=== PATIENT | male | born 1975 | race Caucasian/White ===

== ENCOUNTER 2016-06-10 10:41 | Emergency (ER) | payer OTHER ==
[~2016-06-10] VITALS: Ht 188 cm; Wt 103.9 kg
[~2016-06-10 10:41] MED LIST: CEFDINIR300 MG PO; CORTISPORIN 1%-10 ML; CRESTOR20 M2 PO; IBU800 MG PO; IBUPROFEN800 M1 PO; LEVOTHYROXINE175 MCG PO; NAPROSYN 500 M500 MG PO; PERCOCET 325 MG1 TA2 PO; SUMATRIPTAN SU100 MG PO; TRAMADOL HCL50 M1 PO
[2016-06-10 10:49] VITALS: BP 116/62
--- NOTE | 2016-06-10 11:43 | ED GI/GU/ABDOMINAL COMPLAINT ---
History of Present Illness General Chief Complaint: Male Genitourinary Problems Stated Complaint: L GROIN PAIN Source: patient Exam Limitations: no limitations Vital Signs & Intake/Output Vital Signs & Intake/Output Vital Signs Date Time Temp Pulse Resp B/P Pulse O2 O2 Flow FiO2 Ox Delivery Rate 06/10 1156 96 Room Air 06/10 1049 97.7 71 20 116/62 96 Room Air Allergies Coded Allergies: raspberry (Severe, HIVES 06/03/15) azithromycin (HIVES 06/03/15) Reconcile Medications Levothyroxine Sodium 175 MCG TABLET 1 TAB PO DAILY THYROID HEALTH (Reported) Rosuvastatin Calcium (Crestor) 10 MG TABLET 1 TAB PO DAILY HIGH CHOLESTROL ( Reported) Tramadol HCl 50 MG TABLET 1-2 TAB PO Q6P PRN pain Triage Note: PT C/O LEFT GROIN PAIN X 3 DAYS. PT DENIES ANY RADIATION OF PAIN. PT DENIES ANY INJURY, DENIES URINARY S&S Triage Nurses Notes Reviewed? yes Onset: Gradual Duration: intermittent Timing: recent history Quality/Severity: moderate Severity Numbers: 5 Radiation: no radiation Activities at Onset: none HPI: Patient is a 40-year-old male with an unremarkable past medical history presents emergency room patent for the past 3 days patient has noticed a gradual onset of left lower quadrant and pelvic abdominal wall pain. Patient denies any mechanism injury however does state that with laughing walking coughing and lumbar spine movements what makes his symptoms worse. Last bowel movement was today no blood no melena noted. Denies any nausea or fevers chills vomiting testicular pain testicular swelling dysuria hematuria (CHRISTY RIZO) Past History Travel History Traveled to [place] past 21 day No Medical History Any Pertinent Medical History? see below for history Neurological: NONE EENT: NONE Cardiovascular: hyperlipidemia Respiratory: NONE Gastrointestinal: NONE Hepatic: NONE Renal: NONE Musculoskeletal: chronic back pain Psychiatric: NONE Endocrine: hypothyroidism Tetanus Vaccine: 09/29/15 Surgical History Surgical History: non-contributory, N Psychosocial History What is your primary language [place]orese Tobacco Use: Never used ETOH Use: occasional use Illicit Drug Use: denies illicit drug use Family History Hx Contributory? No (CHRISTY RIZO) Review of Systems Review of Systems Constitutional: Reports: no symptoms. EENTM: Reports: no symptoms. Respiratory: Reports: no symptoms. Cardiovascular: Reports: no symptoms. GI: Reports: see HPI, abdominal pain. Genitourinary: Reports: no symptoms. Musculoskeletal: Reports: no symptoms. Skin: Reports: no symptoms. Neurological/Psychological: Reports: no symptoms. Hematologic/Endocrine: Reports: no symptoms. Immunologic/Allergic: Reports: no symptoms. All Other Systems: Reviewed and Negative (CHRISTY RIZO) Physical Exam Physical Exam General Appearance: no apparent distress, alert, comfortable Gastrointestinal: normal bowel sounds, soft Male Genitals: normal genitalia, INTACT CREMASTER REFLEX nONTENDER TESTICLE NO SCROTAL SWELLING nO INGUINAL HERNIA UPON PALPATION Comments: Well-developed well-nourished person in no acute distress HEENT: Normal EENT exam Neck: Supple, no lymphadenopathy, normal range of motion without pain or tenderness Back: Nontender, no CVA tenderness. Cardiovascular: Regular rate and rhythms no murmurs rubs or gallops, normal JVP Respiratory: Chest nontender. No respiratory distress.breath sounds clear to auscultation bilaterally Abdomen: Normal inspection, left lower quadrant and pelvic point tenderness no observable hernia bowel sounds intact in all 4 quadrants Extremity: No edema, no calf tenderness to palpation, normal and equal pulses. Neuro: Alert oriented x3, motor sensory normal, Skin: No appreciable rash on exposed skin, skin is warm and dry. Psych: Mood and affect is normal, memory and judgment is normal. Core Measures ACS in differential dx? No Severe Sepsis Present: No Septic Shock Present: No (CHRISTY RIZO) Progress Differential Diagnosis: AAA, AMI, appendicitis, biliary colic, bowel obstruction , colon cancer, cholecystitis, diverticulitis, epididymitis, esophageal varices, gastritis, hepatitis, hernia, hemorrhoids, ischemic bowel, inflamm bowel dis, [place]-T[place] tear, orchitis, pancreatitis, prostatitis, peptic ulcer, PUD/GERD, perforated viscous, pyelonephritis, SBO, testicular torsion, ureterolithiasis, urinary retention, urethritis, UTI/pyelo Plan of Care: Patient has reproducible pain upon supine trunk flexion abdominal movements however no observable hernias noted at this time. Patient also has reproducible pain upon muscular actions of the abdominal wall such as coughing and laughing and lumbar spine movements. Patient at this time has no concerns of small bowel obstruction or testicular torsion. Patient has normal steady gait and is in no apparent distress. Patient was given a CT scan prescription if symptoms still continue in 2 days for further evaluation and treatment. Patient has no concerns of right lower quadrant pain no peritoneal signs no rebound tenderness no right upper quadrant pain no epigastric pain. Due to history of present illness and exam findings I suspect patient to have abdominal wall strain Initial ED EKG: none (CHRISTY RIZO) Departure Departure Disposition: HOME OR SELF CARE Condition: Stable Clinical Impression Primary Impression: Abdominal wall pain in left lower quadrant Referrals: CONNIE MARTINEZ MD (PCP/Family) Additional Instructions: As discussed begin to avoid strenuous physical activity as this may worsen her symptoms. Begin [id number] ibuprofen and/or Tylenol for pain and inflammation begin icing the area directly 20 minutes every 2 hours for pain. If symptoms still continue in 2 days follow-up WITH YOUR Primary care doctor and obtain a CT scan with the prescription PROVIDED to you in the emergency room , please call the central scheduling phone number at [phone] to make an appointment for the CT scan this is at [facility] Department of radiology. This will be sent to your primary care doctor. If symptoms worsen return to emergency room Departure Forms: Customer Survey General Discharge Information (CHRISTY RIZO) PA/DAIRY TECHNOLOGIST Co-Sign Statement Statement: ED Attending supervision documentation- [] I saw and evaluated the patient. I have also reviewed all the pertinent lab results and diagnostic results. I agree with the findings and the plan of care as documented in the PA's/DAIRY TECHNOLOGIST's documentation. x I have reviewed the ED Record and agree with the PA's/DAIRY TECHNOLOGIST's documentation. [] Additions or exceptions (if any) to the PAs/DAIRY TECHNOLOGIST's note and plan are summarized below: [] (TEO GOULD,BHUMIKA)
[2016-08-12] MEDS ORDERED: SUMATRIPTAN SU100 M1 PO (22:08)
[2016-08-12] MEDS ORDERED: CYCLOBENZAPRINE10 M1 PO (22:32)
[2016-08-12] MEDS ORDERED: MOBIC15 M1 PO (22:32)
== END 2016-06-10 12:04 ==
LOC: ERH 10:41
DX: R10.32 Left lower quadrant pain (principal)

== ENCOUNTER 2016-06-13 15:03 | Emergency (ER) | payer OTHER ==
[~2016-06-13] VITALS: Ht 188 cm; Wt 103.9 kg
[2016-06-13 15:49] LABS: ABSOLUTE BASOPHIL COUNT 0 /CUMM (0.0-0.2); ABSOLUTE EOSINOPHIL COUNT 0.1 /CUMM (0.0-0.7); ABSOLUTE LYMPH COUNT 2.2 /CUMM (1.2-3.4); ABSOLUTE MONOCYTE COUNT 0.5 /CUMM (0.10-0.60); BASOPHIL % 0.2 % (0.0-2.0); EOSINOPHIL % 1.8 % (0-5); GRANULOCYTE % 58.2 % (42.2-75.2); HEMATOCRIT 45.8 % (42-52); MEAN CORPUSCULAR HGB 30.3 PG (27.0-31.0); MEAN CORPUSCULAR HGB CONC 33.5 G/DL (33.0-37.0); MEAN CORPUSCULAR VOLUME 90.4 FL (80.0-94.0); MEAN PLATELET VOLUME 8.5 FL (7.4-10.4); PLATELET COUNT 209 /CUMM (130-400); RBC DISTRIBUTION WIDTH 12.8 % (11.5-14.5); RED BLOOD CELL CT 5.07 /CUMM (4.70-6.10); WHITE BLOOD CELL COUNT 6.9 /CUMM (4.8-10.8)
--- NOTE | 2016-06-13 16:12 | ED GI/GU/ABDOMINAL COMPLAINT ---
History of Present Illness General Chief Complaint: Abdominal Pain/Flank Pain Stated Complaint: L FLANK PAIN Source: patient Exam Limitations: no limitations Vital Signs & Intake/Output Vital Signs & Intake/Output Vital Signs Date Time Temp Pulse Resp B/P Pulse O2 O2 Flow FiO2 Ox Delivery Rate 06/13 1718 97.7 60 18 124/81 98 Room Air 06/13 1520 98.4 62 16 123/78 98 Room Air Allergies Coded Allergies: raspberry (Severe, HIVES 06/03/15) azithromycin (HIVES 06/03/15) Reconcile Medications Levothyroxine Sodium 175 MCG TABLET 1 TAB PO DAILY THYROID HEALTH (Reported) Oxycodone HCl 5 MG CAPSULE 1 CAP PO 4XDP abdominal pain Rosuvastatin Calcium (Crestor) (Unknown Strength) TABLET (Unknown Dose) PO DAILY HIGH CHOLESTROL (Reported) Tramadol HCl 50 MG TABLET 1-2 TAB PO Q6P PRN pain Triage Note: PT WAS SEEN HERE WED DUE TO LLQ PAIN, PAIN HAS BEEN CONSTANT. DENIES N/V/D. STATES THAT HE WAS TOLD TO HAVE OUT PT CT SCAN BUT WHEN HE CALLED THEY TOLD HIM THEY COULDN'T DO IT. Triage Nurses Notes Reviewed? yes HPI: 40 yo M PMH LBP presenting with abdominal pain. LLQ pain for the past 5-6 days, constant, worse with movement or palpation, nonradiating. Denies associated fevers, chills, chest pain, shortness of breath, nausea, vomiting, diarrhea, constipation, bloody stools or melena, penile or scrotal symptoms, urinary symptoms. Evaluated for the same in this emergency department 2 days ago, discharged with pain control and outpatient prescription for CT abdomen and pelvis, today was having ongoing pain so attempted to get CT abdomen and pelvis, told he was unable to get study, sent to ED for evaluation. Denies alcohol or illicit drug use. No prior abdominal surgeries. (MIHAI GOULD,CARLEEN) Past History Travel History Traveled to [place] past 21 day No Medical History Any Pertinent Medical History? none Neurological: NONE EENT: NONE Cardiovascular: hyperlipidemia Respiratory: NONE Gastrointestinal: NONE Hepatic: NONE Renal: NONE Musculoskeletal: chronic back pain Psychiatric: NONE Endocrine: hypothyroidism Blood Disorders: NONE Cancer(s): NONE BENCH WORKER HELPER/Reproductive: NONE Tetanus Vaccine: 09/29/15 Surgical History Surgical History: non-contributory, N Psychosocial History What is your primary language [place] Tobacco Use: Never used ETOH Use: denies use Illicit Drug Use: denies illicit drug use Family History Hx Contributory? No (CARLEEN HOLM MD) Review of Systems Review of Systems Constitutional: Reports: no symptoms. EENTM: Reports: no symptoms. Respiratory: Reports: no symptoms. Cardiovascular: Reports: no symptoms. GI: Reports: abdominal pain. Denies: constipation, diarrhea, distention, melena, nausea, bloody stool, changes in stool, vomiting. Genitourinary: Reports: no symptoms. Musculoskeletal: Reports: no symptoms. Skin: Reports: no symptoms. Neurological/Psychological: Reports: no symptoms. Hematologic/Endocrine: Reports: no symptoms. Immunologic/Allergic: Reports: no symptoms. All Other Systems: Reviewed and Negative (CARLEEN HOLM MD) Physical Exam Physical Exam General Appearance: well developed/nourished, no apparent distress, alert, awake Head: atraumatic, normal appearance Eyes: Bilateral: normal appearance. Neck: normal inspection, supple, full range of motion Respiratory: normal breath sounds, no respiratory distress, lungs clear Cardiovascular: regular rate/rhythm, normal peripheral pulses Gastrointestinal: soft, LLQ tenderness to palpation Comments: Abdomen: Moderate left lower quadrant tenderness to palpation without rebound or guarding : No testicular tenderness to palpation bilaterally, no appreciable hernias Core Measures ACS in differential dx? No Severe Sepsis Present: No Septic Shock Present: No (CARLEEN HOLM MD) Progress Differential Diagnosis: appendicitis, cholecystitis, diverticulitis, epididymitis, hepatitis, ischemic bowel, pancreatitis, PUD/GERD, perforated viscous, SBO, testicular torsion, UTI/pyelo Plan of Care: Orders Procedure Date/time Status Add-on Test (ER Only) 06/13 1611 Active LIPASE 06/13 1525 Complete AMYLASE 06/13 1525 Complete LACTIC ACID 06/13 1524 Complete COMPREHENSIVE METABOLIC PANEL 06/13 1524 Complete CBC WITHOUT DIFFERENTIAL 06/13 1524 Complete Laboratory Tests 06/13/16 1824: Lactic Acid Cancelled 06/13/16 1611: Urine Color Cancelled, Urine Clarity Cancelled, Urine pH Cancelled, Ur Specific [place] Cancelled, Urine Protein Cancelled, Urine Ketones Cancelled, Urine Nitrite Cancelled, Urine Bilirubin Cancelled, Urine Urobilinogen Cancelled, Ur Leukocyte Esterase Cancelled, Ur Microscopic Cancelled, Urine Hemoglobin Cancelled, Urine Glucose Cancelled 06/13/16 1525: Anion Gap 11, Estimated GFR > 60, BUN/Creatinine Ratio 20.0, Glucose 121 H, Lactic Acid 1.1, Calcium 9.7, Total Bilirubin 0.4, AST 26, ALT 49, Alkaline Phosphatase 66, Total Protein 7.2, Albumin 4.4, Globulin 2.8, Albumin/Globulin Ratio 1.6, Amylase 48, Lipase 60, CBC w Diff NO MAN DIFF REQ, RBC 5.07, MCV 90.4 , MCH 30.3, RDW 12.8, MPV 8.5, Gran % 58.2, Lymphocytes % 32.6, Monocytes % 7.2, Eosinophils % 1.8, Basophils % 0.2, Absolute Granulocytes 4.0, Absolute Lymphocytes 2.2, Absolute Monocytes 0.5, Absolute Eosinophils 0.1, Absolute Basophils 0, PUBS MCHC 33.5 Physician MDM: 39 yo M presenting with 5 days of LLQ pain. VSS, abdominal exam as above. DDx: Diverticulitis, peptic ulcer disease, GERD, colitis, appendicitis , hernia, nephrolithiasis, less likely testicular pathology. Morphine given with marked improvement in pain. Morphine given with improvement in pain. CMP, CBC, lipase unremarkable, lactate 1.1. CT abdomen and pelvis with left lower quadrant epiploic appendicitis, likely cause of patient's symptoms. Expected management of epiploic appendicitis discussed the patient, given return to care precautions. Discharged with pain control and follow-up with primary medical doctor planned in the next 2-3 days. (MIHAI GOULD,CARLEEN) Initial ED EKG: none (MIHAI GOULD,CARLEEN) Departure Departure Disposition: HOME OR SELF CARE Condition: Stable Clinical Impression Primary Impression: Epiploic appendagitis Referrals: CONNIE MARTINEZ MD (PCP/Family) Additional Instructions: Take tylenol for mild-moderate pain. Take oxycodone for severe pain. Follow up with your primary care physician in the next 2-3 days. Return to the Emergency Department for any new, worsening, or concerning symptoms. Discuss the results of the following CT scan with your physician to arrange for routine follow up of renal cyst: IMPRESSION: 1. Acute epiploic appendagitis involving the proximal sigmoid colon in the left lower quadrant. 2. Right renal parapelvic cyst. 3. L5-S1 discopathy. Departure Forms: Customer Survey General Discharge Information Prescriptions: Current Visit Scripts Oxycodone HCl 1 CAP PO 4XDP #16 CAP (MIHAI GOULD,CARLEEN) Resident Co-Sign Statement Statement: ED Attending supervision documentation- [X] I saw and evaluated the patient. I have also reviewed all the pertinent lab results and diagnostic results. I agree with the findings and the plan of care as documented in the Resident's documentation. [X] I have reviewed the ED Record and agree with the Resident's documentation. [] Additions or exceptions (if any) to the Resident's note and plan are summarized below: [] (HIMA GOULD,WHITNEY Alvarez)
--- NOTE | 2016-06-13 17:02 | CT SCAN REPORT ---
EXAMINATION: CT ABDOMEN AND PELVIS WITH CONTRAST CLINICAL INFORMATION: Abdominal pain COMPARISON: 01/31/2015 CT abdomen pelvis TECHNIQUE: Multidetector volumetric imaging was performed of the abdomen and pelvis before and after the IV administration of 94 mL of Optiray 320 intravenous contrast. Sagittal and coronal reformatted images were obtained on the technologist's workstation. DLP: 392.28 mGy-cm FINDINGS: LUNG BASES: The visualized lung bases are unremarkable. LIVER, GALLBLADDER, AND BILIARY TREE: The liver is normal in size, shape, and attenuation. No focal hepatic lesion or biliary ductal dilatation is present. The gallbladder is contracted. PANCREAS: Unremarkable. SPLEEN: Unremarkable. ADRENAL GLANDS: Unremarkable. KIDNEYS AND URETERS: The kidneys are normal in size, shape, and attenuation. No hydronephrosis, hydroureter, or calculi seen. No perinephric stranding. There is a 2.8 cm right parapelvic cyst in interpolar region of the right kidney, unchanged. BLADDER: Unremarkable. GASTROINTESTINAL TRACT: The stomach, duodenum and the small bowel loops are within normal limits. The loops of colon are not dilated. There is a 1.7 cm oval fat density, surrounded by a thin layer of soft tissue density adjacent to the proximal sigmoid colon, in the left lower quadrant of the abdomen. The finding represents epiploic appendagitis. The finding is better seen on axial image 498/720 from series 3, coronal image 28 and sagittal image 37. The appendix is not visualized, however there is no inflammatory change in the expected position of the appendix to suggest acute appendicitis. There is no free fluid or free air in the abdomen or pelvis. ABDOMINAL WALL: No significant hernia is appreciated. LYMPH NODES: Normal. VASCULAR: Unremarkable. PELVIC VISCERA: Unremarkable. OSSEOUS STRUCTURES: Degenerative disc disease at L5-S1 level with narrowing of disc space and vacuum disc phenomenon noted. IMPRESSION: 1. Acute epiploic appendagitis involving the proximal sigmoid colon in the left lower quadrant. 2. Right renal parapelvic cyst. 3. L5-S1 discopathy.
[2016-06-13 17:18] VITALS: BP 124/81
[2016-06-13] MEDS ORDERED: OXYCODONE HCL5 M2 PO (17:38)
[2016-08-12] MEDS ORDERED: SUMATRIPTAN SU100 M1 PO (22:08)
[2016-08-12] MEDS ORDERED: MOBIC15 M1 PO (22:32)
[2016-08-12] MEDS ORDERED: CYCLOBENZAPRINE10 M1 PO (22:32)
== END 2016-06-13 17:54 ==
LOC: ERH 15:03
PROVIDERS: Emergency Medicine
DX: R10.32 Left lower quadrant pain (principal)
CPT/HCPCS: 74177; 96374

== ENCOUNTER 2016-07-04 19:52 | Emergency (ER) | payer OTHER ==
[~2016-07-04] VITALS: Ht 188 cm; Wt 103.4 kg
[~2016-07-04 19:52] MED LIST changes: +OXYCODONE HCL5 M2 PO
--- NOTE | 2016-07-04 20:57 | ED GI/GU/ABDOMINAL COMPLAINT ---
History of Present Illness General Chief Complaint: Abdominal Pain/Flank Pain Stated Complaint: ABD PAIN Source: patient, old records Exam Limitations: no limitations Vital Signs & Intake/Output Vital Signs & Intake/Output Vital Signs Date Time Temp Pulse Resp B/P B/P Pulse O2 O2 Flow FiO2 Mean Ox Delivery Rate 07/04 2252 98.2 55 18 131/76 98 Room Air 07/04 2002 97.9 64 18 130/88 100 Room Air ED Intake and Output 07/05 0000 07/04 1200 Intake Total Output Total Balance Patient 228 lb Weight Weight Reported by Patient Measurement Method Allergies Coded Allergies: raspberry (Severe, HIVES 06/03/15) azithromycin (HIVES 06/03/15) Reconcile Medications Dicyclomine Hydrochloride (Bentyl) 10 MG CAPSULE 1 CAP PO TID PRN abdominal pain Levothyroxine Sodium 175 MCG TABLET 1 TAB PO DAILY THYROID HEALTH (Reported) Omeprazole 40 MG CAPSULE.DR 1 CAP PO DAILY gerd Ondansetron (Zofran Odt) 4 MG TAB.RAPDIS 1 TAB SL TID PRN nausea Oxycodone HCl 5 MG CAPSULE 1 CAP PO 4XDP abdominal pain Rosuvastatin Calcium (Crestor) (Unknown Strength) TABLET (Unknown Dose) PO DAILY HIGH CHOLESTROL (Reported) Tramadol HCl 50 MG TABLET 1-2 TAB PO Q6P PRN pain Tramadol HCl 50 MG TABLET 1-2 TAB PO Q6 PRN pain Triage Note: PT TO ED FOR 3 DAYS OF INTERMITTENT SHARP ABD PAIN, DENIES NAUSEA, VOMITING, DIARRHEA. PT REPORTING WORSENING BLOATING WELL. Triage Nurses Notes Reviewed? yes HPI: Patient is a 40-year-old male presents complaining of abdominal bloating and intermittent abdominal pain 2-3 days. Patient reports that the bloating sensation has been continuous, worsens with eating or drinking. Pain is currently mild but has been severe at times. Patient reports that he has been having very small bowel movements but has been able to go daily. Patient burped 2-3 days ago with an acid sensation in his mouth but has not been having increased burping since then. Patient is taking Maalox 2-3 times a day with mild brief improvement. Patient denies fevers, chills, vomiting (NAVYA SAWYER) Past History Travel History Traveled to [place] past 21 day No Medical History Any Pertinent Medical History? see below for history Neurological: NONE EENT: NONE Cardiovascular: hyperlipidemia Respiratory: NONE Gastrointestinal: NONE Hepatic: NONE Renal: NONE Musculoskeletal: chronic back pain Psychiatric: NONE Endocrine: hypothyroidism Blood Disorders: NONE Cancer(s): NONE COMPOSITION WORKER/Reproductive: NONE Tetanus Vaccine: 09/29/15 Surgical History Surgical History: non-contributory, N Psychosocial History What is your primary language Greenlandic Tobacco Use: Never used ETOH Use: denies use Illicit Drug Use: denies illicit drug use Family History Hx Contributory? No (NAVYA SAWYER) Review of Systems Review of Systems Constitutional: Denies: chills, fever. EENTM: Reports: no symptoms. Respiratory: Denies: cough, short of breath. Cardiovascular: Denies: chest pain. GI: Reports: see HPI. Genitourinary: Reports: no symptoms. Musculoskeletal: Reports: back pain (chronic, unchanged). Skin: Reports: no symptoms. Neurological/Psychological: Reports: no symptoms. Hematologic/Endocrine: Reports: no symptoms. Immunologic/Allergic: Reports: no symptoms. (NAVYA SAWYER) Physical Exam Physical Exam General Appearance: well developed/nourished, no apparent distress, alert, awake Head: atraumatic, normal appearance Eyes: Bilateral: normal appearance, PERRL, EOMI. Ears, Nose, Throat, Mouth: hearing grossly normal, moist mucous membrane Neck: normal inspection, supple, full range of motion Respiratory: normal breath sounds, chest non-tender, no respiratory distress, lungs clear Cardiovascular: regular rate/rhythm Gastrointestinal: normal bowel sounds, soft, mild distention. No focal tenderness. Negative Higginbotham's signs, negative McBurney's point tenderness Back: normal inspection, normal range of motion Extremities: normal range of motion Neurologic/Psych: no motor/sensory deficits, awake, alert, oriented x 3, normal gait, normal mood/affect Skin: intact, normal color, warm/dry Core Measures ACS in differential dx? No Severe Sepsis Present: No Septic Shock Present: No (NAVYA SAWYER) Progress Differential Diagnosis: appendicitis, biliary colic, cholecystitis, gastritis, hepatitis, hernia, ischemic bowel, inflamm bowel dis, pancreatitis, PUD/GERD, perforated viscous, SBO Plan of Care: Orders Procedure Date/time Status Add-on Test (ER Only) 07/04 2101 Active LIPASE 07/04 2044 Complete AMYLASE 07/04 2044 Complete COMPREHENSIVE METABOLIC PANEL 07/05 2003 Complete CBC WITHOUT DIFFERENTIAL 07/05 2003 Complete Laboratory Tests 07/04/162044: Anion Gap 12, Estimated GFR > 60, BUN/Creatinine Ratio 22.2, Glucose 102 H, Calcium 9.3, Total Bilirubin 0.5, AST 24, ALT 49, Alkaline Phosphatase 69, Total Protein 7.1, Albumin 4.4, Globulin 2.7, Albumin/Globulin Ratio 1.6, Amylase 50, Lipase 50, CBC w Diff NO MAN DIFF REQ, RBC 5.30, MCV 90.2, MCH 30.4, RDW 13.2, MPV 8.1, Gran % 64.0, Lymphocytes % 25.6, Monocytes % 9.0, Eosinophils % 1.1, Basophils % 0.3, Absolute Granulocytes 5.1, Absolute Lymphocytes 2.0, Absolute Monocytes 0.7 H, Absolute Eosinophils 0.1, Absolute Basophils 0, PUBS MCHC 33.[address] scan of the abdomen and pelvis approximately 3 weeks ago which showed epiploic appendage. No other focal abnormalities at that time. No peritoneal signs on exam. Results of labs and x-ray discussed with the patient. Patient appears stable for discharge and outpatient follow-up. (MICAH MENDOZA,NAVYA) Diagnostic Imaging: Viewed by Me: Radiology Read. Discussed w/RAD: Radiology Read. Radiology Impression: PATIENT: PANTERA KIRKPATRICK PRESENT AGE: 40 PATIENT ACCOUNT NO: [id number] : 73 LOCATION: [facility] ORDERING PHYSICIAN: NAVYA MENDOZA SERVICE DATE: 07/04/16 EXAM TYPE: RAD - [id number] VIEWS EXAMINATION: XR ABDOMEN MULTIPLE VIEWS CLINICAL INDICATION: Abdominal pain COMPARISON: 06/13/2016 CT scan abdomen pelvis TECHNIQUE: 4 views of the abdomen were obtained. FINDINGS: Nonobstructive bowel gas pattern. No free intra-abdominal air. There is no evidence of free air or obstruction. No abnormal calcifications are seen in the course of KUB to suggest urinary stone. The visualized bony skeleton is unremarkable. IMPRESSION: Unremarkable abdominal x-ray. DICTATED BY: LAINE BESS MD DATE/TIME DICTATED :07/04/162242 DISCHARGE RN:KALEB DATE/TIME TRANSCRIBED:07/04/162242 CONFIDENTIAL, DO NOT COPY WITHOUT APPROPRIATE AUTHORIZATION. < Electronically signed in Other Vendor System> SIGNED BY: LAINE BESS MD 07/04/16 5149 Initial ED EKG: none (NAVYA SAWYER) Departure Departure Time of Disposition: 2253 Disposition: HOME OR SELF CARE Condition: Stable Clinical Impression Primary Impression: Abdominal pain Referrals: CONNIE MARTINEZ MD (PCP/Family) TERRIE WORRELL MD Additional Instructions: Follow up with Dr. Worrell(GI doctor) and with your primary doctor for further evaluation. Call Wednesday for appointments. Return to the ER if fevers, pain localizing to the right lower abdomen, unable to stay hydrated or worsening of symptoms. Departure Forms: Customer Survey General Discharge Information Prescriptions: Current Visit Scripts Tramadol HCl 1-2 TAB PO Q6 PRN pain #15 TAB Omeprazole 1 CAP PO DAILY #30 CAP Dicyclomine Hydrochloride (Bentyl) 1 CAP PO TID PRN abdominal pain #12 CAP Ondansetron (Zofran Odt) 1 TAB SL TID PRN nausea #10 TAB (NAVYA ASWYER) PA/CULINARY CHEF Co-Sign Statement Statement: ED Attending supervision documentation- [] I saw and evaluated the patient. I have also reviewed all the pertinent lab results and diagnostic results. I agree with the findings and the plan of care as documented in the PA's/CULINARY CHEF's documentation. [X] I have reviewed the ED Record and agree with the PA's/CULINARY CHEF's documentation. [] Additions or exceptions (if any) to the PAs/CULINARY CHEF's note and plan are summarized below: [] (KALPANA GOULD,RUTHIE)
[2016-07-04 21:00] LABS: ABSOLUTE BASOPHIL COUNT 0 /CUMM (0.0-0.2); ABSOLUTE EOSINOPHIL COUNT 0.1 /CUMM (0.0-0.7); ABSOLUTE GRANULOCYTE CT 5.1 /CUMM (1.4-6.5); ABSOLUTE MONOCYTE COUNT 0.7 /CUMM (0.10-0.60); BASOPHIL % 0.3 % (0.0-2.0); EOSINOPHIL % 1.1 % (0-5); HEMATOCRIT 47.8 % (42-52); MEAN CORPUSCULAR HGB 30.4 PG (27.0-31.0); MEAN CORPUSCULAR HGB CONC 33.7 G/DL (33.0-37.0); MEAN CORPUSCULAR VOLUME 90.2 FL (80.0-94.0); MEAN PLATELET VOLUME 8.1 FL (7.4-10.4); PLATELET COUNT 241 /CUMM (130-400); RBC DISTRIBUTION WIDTH 13.2 % (11.5-14.5)
--- NOTE | 2016-07-04 22:49 | RADIOLOGY REPORT ---
EXAMINATION: XR ABDOMEN MULTIPLE VIEWS CLINICAL INDICATION: Abdominal pain COMPARISON: 06/13/2016 CT scan abdomen pelvis TECHNIQUE: 4 views of the abdomen were obtained. FINDINGS: Nonobstructive bowel gas pattern. No free intra-abdominal air. There is no evidence of free air or obstruction. No abnormal calcifications are seen in the course of KUB to suggest urinary stone. The visualized bony skeleton is unremarkable. IMPRESSION: Unremarkable abdominal x-ray.
[2016-07-04 22:53] VITALS: BP 131/76
[2016-07-04] MEDS ORDERED: OMEPRAZOLE40 M1 PO (22:57)
[2016-07-04] MEDS ORDERED: ZOFRAN ODT4 M1 SL (22:57)
[2016-07-04] MEDS ORDERED: TRAMADOL HCL50 M1 PO (22:57)
[2016-07-04] MEDS ORDERED: BENTYL10 M1 PO (22:57)
[2016-08-12] MEDS ORDERED: SUMATRIPTAN SU100 M1 PO (22:08)
[2016-08-12] MEDS ORDERED: MOBIC15 M1 PO (22:32)
[2016-08-12] MEDS ORDERED: CYCLOBENZAPRINE10 M1 PO (22:32)
== END 2016-07-04 23:01 ==
LOC: ERH 19:52
PROVIDERS: Emergency Medicine
DX: R10.9 Unspecified abdominal pain (principal)
CPT/HCPCS: 74020

== ENCOUNTER 2016-07-07 10:17 | Emergency (ER) | payer OTHER ==
[~2016-07-07] VITALS: Ht 188 cm; Wt 102.5 kg
[~2016-07-07 10:17] MED LIST changes: +BENTYL10 M1 PO; +OMEPRAZOLE40 M1 PO; +ZOFRAN ODT4 M1 SL
--- NOTE | 2016-07-07 11:41 | ED AMS/SEIZURE/WEAK/DIZZY ---
History of Present Illness General Chief Complaint: Dizziness Stated Complaint: DIZZINESS,WEAKNESS Source: patient, old records Exam Limitations: no limitations Vital Signs & Intake/Output Vital Signs & Intake/Output Vital Signs Date Time Temp Pulse Resp B/P B/P Pulse O2 O2 Flow FiO2 Mean Ox Delivery Rate 07/07 1224 98 07/07 1223 97.3 60 18 125/70 97 Room Air 07/07 1025 97.5 69 20 130/83 98 Room Air Allergies Coded Allergies: raspberry (Severe, HIVES 06/03/15) azithromycin (HIVES 06/03/15) Reconcile Medications Dicyclomine Hydrochloride (Bentyl) 10 MG CAPSULE 1 CAP PO TID PRN abdominal pain Levothyroxine Sodium 175 MCG TABLET 1 TAB PO DAILY AC THYROID (Reported) Omeprazole 40 MG CAPSULE.DR 1 CAP PO DAILY gerd Rosuvastatin Calcium (Crestor) 20 MG TABLET 1 TAB PO DAILY CHOLESTEROL ( Reported) Tramadol HCl 50 MG TABLET 1-2 TAB PO Q6 PRN pain Triage Note: PT TO ED C/O FEELING LIGHTHEADED AND DIZZY SINCE THIS AM. STATES IT HAPPENED A FEW TIMES THIS MORNING. DENIES PAIN. PT AGO FOR ABD PAIN, SENT HOME WITH MEDS, HAS BEEN TAKING PRESCRIBED. Triage Nurses Notes Reviewed? yes Onset: Gradual Duration: day(s): (1) Timing: no prior history Injury Environment: home Severity: moderate Severity Numbers: 7 Modifying Factors: Improves With: immobilization. Worsens With: movement. HPI: Patient is a 40-year-old male presenting to the emergency department with chief complaint of 2 episodes of dizziness that happened this morning around 9 AM. Each episode of dizziness lasted a few seconds and then resolved. It happened about 15 minutes apart from each other. Denies any associated nausea or vomiting. No chest pain or palpitations. Reports that he's been seen and evaluated here in the emergency department recently for abdominal pain. He has an appointment with a gastrointestinal specialist on Wednesday. He started taking Bentyl as prescribed. These symptoms started after starting Bentyl. Denies any continued symptoms. No current symptoms at this time. Denies any current weakness or fatigue. During those episodes of dizziness he felt like the room was spinning and felt like he was given a pass out but didn't. No falls. Denies any current visual changes but during the episode he reported blurry vision. Denies history of similar symptoms in the past. His mother had a history of vertigo in the past. Patient has been taking all medications as prescribed. Denies drug or alcohol use. Denies any shortness of breath. (CHAR OLGUIN) Past History Travel History Traveled to [place] past 21 day No Medical History Any Pertinent Medical History? see below for history Neurological: NONE EENT: NONE Cardiovascular: hyperlipidemia Respiratory: NONE Gastrointestinal: NONE Hepatic: NONE Renal: NONE Musculoskeletal: chronic back pain Psychiatric: NONE Endocrine: hypothyroidism Blood Disorders: NONE Cancer(s): NONE ACO COORDINATOR/Reproductive: NONE Tetanus Vaccine: 09/29/15 Surgical History Surgical History: non-contributory, N Psychosocial History What is your primary language Nicaraguan Tobacco Use: Never used ETOH Use: denies use Illicit Drug Use: denies illicit drug use Family History Hx Contributory? No (CHAR OLGUIN) Review of Systems Review of Systems Constitutional: Reports: malaise, weakness. Comments Review of systems: See HPI, All other systems negative. Constitutional, no chills fever or weight loss HEENT: no sore throat no congestion Cardiovascular: No chest pain ,palpitation , orthopnea or ankle swelling Skin, no jaundice no rashes Respiratory: No dyspnea cough sputum or hemoptysis GI: No nausea no vomiting : No dysuria No hematuria Muscle skeletal: no back pain, no neck pain, Neurologic: No numbness no confusion Psych: No stress anxiety or depression,. Heme/endocrine: No bruising no bleeding no polyuria or polydipsia Immunology: No splenectomy or history of AIDS (CHAR OLGUIN) Physical Exam Physical Exam General Appearance: well developed/nourished, no apparent distress, alert, awake , comfortable Comments: Well-developed well-nourished person in no acute distress HEENT: Normal EENT exam, extraocular motion intact, MILD HORIZONTAL nystagmus. Pupils equally round and reactive to light and accommodation. Nose is atraumatic. External auditory canal and Tympanic membranes clear. Pharynx normal. No swelling or edema. REPRODUCIBLE DIZZINESS WITH DICKS HALLPIKE MANUEVER. Neck: Supple, no lymphadenopathy, normal range of motion without pain or tenderness,NO CAROTID BRUITS NOTED . Back: Nontender, no CVA tenderness. Full range of motion Cardiovascular: Regular rate and rhythms no murmurs rubs or gallops, normal JVP Respiratory: Chest nontender. No respiratory distress.breath sounds clear to auscultation bilaterally Abdomen: Soft, MILD TENDERNESS IN EPIGASTRIC REGION, nondistended, no appreciable organomegaly. Normal bowel sounds. No ascites Extremity: No edema, no calf tenderness to palpation, normal and equal pulses. Neuro: Alert oriented x3, motor sensory normal, cranial nerves II through XII grossly intact. Cerebellar testing is unremarkable. Skin: No appreciable rash on exposed skin, skin is warm and dry. Psych: Mood and affect is normal, memory and judgment is normal. Core Measures ACS in differential dx? No CVA/TIA Diagnosis: No Severe Sepsis Present: No Septic Shock Present: No (JAVIER MENDOZA,CAHR) Progress Differential Diagnosis: MEDICATION REACTION, VERTIGO, INTRACRANIAL HEMORRHAGE, cva, tia, mNIRE'S DISEASE, MIGRAINE Plan of Care: Orders Procedure Date/time Status MISTAKE 07/07 115 Active Telemetry/Bull Gang Supervisor 07/07 115 Active TROPONIN LEVEL 07/07 115 Complete LIPASE 07/07 115 Complete COMPREHENSIVE METABOLIC PANEL 07/07 115 Complete CBC WITHOUT DIFFERENTIAL 07/07 115 Complete AMYLASE 07/07 115 Complete EKG 07/07 1142 Active Laboratory Tests 07/07/16 1207: Anion Gap 10, Estimated GFR > 60, BUN/Creatinine Ratio 14.4, Glucose 80, Calcium 8.8, Total Bilirubin 0.5, AST 27, ALT 47, Alkaline Phosphatase 70, Troponin I < 0.01, Total Protein 6.9, Albumin 4.4, Globulin 2.5, Albumin/Globulin Ratio 1.8, Amylase 48, Lipase 51, CBC w Diff NO MAN DIFF REQ, RBC 5.22, MCV 87.7, MCH 30.5, RDW 12.8, MPV 8.1, Gran % 68.1, Lymphocytes % 22.9, Monocytes % 7.8, Eosinophils % 0.8, Basophils % 0.4, Absolute Granulocytes 4.5, Absolute Lymphocytes 1.5, Absolute Monocytes 0.5, Absolute Eosinophils 0.1, Absolute Basophils 0, PUBS MCHC 34.8 Diagnostic Imaging: Viewed by Me: Radiology Read. Discussed w/RAD: Radiology Read. Radiology Impression: PATIENT: PANTERA KIRKPATRICK PRESENT AGE: 40 PATIENT ACCOUNT NO: [id number] : 73 LOCATION: [facility] ORDERING PHYSICIAN: CHAR MENDOZA SERVICE DATE: 07/07/16 EXAM TYPE: RAD - XRY-CHEST XRAY, PA AND LATERAL EXAMINATION: XR CHEST, 2 VIEWS CLINICAL INFORMATION: Near syncope COMPARISON: 10/12/2006 TECHNIQUE: PA and lateral views of the chest were obtained. FINDINGS: Lungs are clear. No consolidation, pneumothorax, or pleural effusion. Cardiac and mediastinal contours are normal. Pulmonary vasculature is unremarkable. Trachea is midline. Osseous structures are unremarkable. IMPRESSION: Normal chest radiographs. DICTATED BY: EVITA IVORY MD DATE/TIME DICTATED:07/07/161304 MATHEMATICS DEPARTMENT CHAIR:KALEB DATE/TIME TRANSCRIBED:07/07/161304 Initial ED EKG: NORMAL SINUS RHYTHM AT 57 BPM Comments: On arrival patient's vitals are stable, exam is unremarkable no focal deficits. Patient will have CBC, CMP, troponin, EKG and chest x-ray. Symptoms are likely peripheral as patient has no central focal deficits. Patient did recently start Bentyl, 40% of users report dizziness as a main side effect. This could definitely be causing patient's symptoms. We will also assess orthostatics. 07/07/2016 12:53:22 PM patient still asymptomatic. He is updated on labs so far. Still pending chest x-ray and troponin. EKG is unremarkable. Orthostatics are negative. At this time considering medication reaction. 07/07/2016 1:15:44 PM patient still asymptomatic, normal sinus on the monitor. He was informed of all lab work results. Negative troponin. Orthostatics are negative. Chest x-ray is unremarkable. Advised to discontinue Bentyl, continue omeprazole. He will increase fluids. He'll return for any worsening symptoms. (CHAR OLGUIN) Departure Departure Time of Disposition: 1313 Disposition: HOME OR SELF CARE Condition: Stable Clinical Impression Primary Impression: Dizziness Referrals: CONNIE MARTINEZ MD (PCP/Family) Additional Instructions: Follow-up with here primary care physician call to make an appointment. Keep appointment with back hoe operator. Increase fluids. Stop taking Bentyl as this could be the source of your dizziness. Make sure YOU EAT well-balanced meals. Departure Forms: Customer Survey General Discharge Information (CHAR OLGUIN) PA/PRESCHOOL HEAD TEACHER Co-Sign Statement Statement: ED Attending supervision documentation- [] I saw and evaluated the patient. I have also reviewed all the pertinent lab results and diagnostic results. I agree with the findings and the plan of care as documented in the PA's/PRESCHOOL HEAD TEACHER's documentation. [x] I have reviewed the ED Record and agree with the PA's/PRESCHOOL HEAD TEACHER's documentation. [] Additions or exceptions (if any) to the PAs/PRESCHOOL HEAD TEACHER's note and plan are summarized below: [] (SIMBA VANEGAS DO
[2016-07-07 12:16] LABS: ABSOLUTE BASOPHIL COUNT 0 /CUMM (0.0-0.2); ABSOLUTE EOSINOPHIL COUNT 0.1 /CUMM (0.0-0.7); ABSOLUTE GRANULOCYTE CT 4.5 /CUMM (1.4-6.5); ABSOLUTE LYMPH COUNT 1.5 /CUMM (1.2-3.4); ABSOLUTE MONOCYTE COUNT 0.5 /CUMM (0.10-0.60); BASOPHIL % 0.4 % (0.0-2.0); EOSINOPHIL % 0.8 % (0-5); GRANULOCYTE % 68.1 % (42.2-75.2); HEMATOCRIT 45.8 % (42-52); MEAN CORPUSCULAR HGB 30.5 PG (27.0-31.0); MEAN CORPUSCULAR HGB CONC 34.8 G/DL (33.0-37.0); MEAN CORPUSCULAR VOLUME 87.7 FL (80.0-94.0); MEAN PLATELET VOLUME 8.1 FL (7.4-10.4); PLATELET COUNT 252 /CUMM (130-400); RBC DISTRIBUTION WIDTH 12.8 % (11.5-14.5); RED BLOOD CELL CT 5.22 /CUMM (4.70-6.10); WHITE BLOOD CELL COUNT 6.7 /CUMM (4.8-10.8)
[2016-07-07 12:23] VITALS: BP 125/70
--- NOTE | 2016-07-07 13:09 | RADIOLOGY REPORT ---
EXAMINATION: XR CHEST, 2 VIEWS CLINICAL INFORMATION: Near syncope COMPARISON: 10/12/2006 TECHNIQUE: PA and lateral views of the chest were obtained. FINDINGS: Lungs are clear. No consolidation, pneumothorax, or pleural effusion. Cardiac and mediastinal contours are normal. Pulmonary vasculature is unremarkable. Trachea is midline. Osseous structures are unremarkable. IMPRESSION: Normal chest radiographs.
[2016-08-12] MEDS ORDERED: SUMATRIPTAN SU100 M1 PO (22:08)
[2016-08-12] MEDS ORDERED: MOBIC15 M1 PO (22:32)
[2016-08-12] MEDS ORDERED: CYCLOBENZAPRINE10 M1 PO (22:32)
== END 2016-07-07 13:24 ==
LOC: ERH 10:17
PROVIDERS: Physician Assistant
DX: R42 Dizziness and giddiness (principal); R53.1 Weakness; E03.9 Hypothyroidism, unspecified
CPT/HCPCS: 93005; 93010

== ENCOUNTER 2017-08-06 16:56 | Emergency (ER) | payer OTHER ==
[~2017-08-06] VITALS: Ht 188 cm; Wt 103.9 kg
[~2017-08-06 16:56] MED LIST changes: +CIPRO500 M1 PO; +CYCLOBENZAPRINE10 M1 PO; +FLOMAX0.4 M1 PO; +MOBIC15 M1 PO; +SUMATRIPTAN SU100 M1 PO
[2017-08-06 17:30] LABS: ABSOLUTE BASOPHIL COUNT 0 /CUMM (0.0-0.2); ABSOLUTE EOSINOPHIL COUNT 0.2 /CUMM (0.0-0.7); ABSOLUTE GRANULOCYTE CT 4.4 /CUMM (1.4-6.5); ABSOLUTE MONOCYTE COUNT 0.6 /CUMM (0.10-0.60); BASOPHIL % 0.2 % (0.0-2.0); EOSINOPHIL % 2.1 % (0-5); GRANULOCYTE % 61.6 % (42.2-75.2); HEMATOCRIT 48.5 % (42-52); MEAN CORPUSCULAR HGB 30.9 PG (27.0-31.0); MEAN CORPUSCULAR HGB CONC 33.9 G/DL (33.0-37.0); MEAN CORPUSCULAR VOLUME 91.1 FL (80.0-94.0); MEAN PLATELET VOLUME 8.3 FL (7.4-10.4); PLATELET COUNT 249 /CUMM (130-400); RED BLOOD CELL CT 5.33 /CUMM (4.70-6.10); WHITE BLOOD CELL COUNT 7.1 /CUMM (4.8-10.8)
--- NOTE | 2017-08-06 17:56 | CT SCAN REPORT ---
EXAMINATION: CT HEAD WITHOUT CONTRAST CLINICAL INFORMATION: Dizziness. Rim is spinning COMPARISON: CT head 05/16/2017. TECHNIQUE: Contiguous axial imaging was performed from the skull base to vertex without intravenous administration of contrast. DLP: 619.92. mGy-cm FINDINGS: There is no evidence of acute intracranial hemorrhage or territorial infarction. No abnormal mass effect or midline shift is seen. Ruiz to white matter differentiation is well preserved. No extra-axial fluid collections are identified. The ventricles are normal in size. There is no abnormal attenuation within the brain parenchyma. The osseous structures and soft tissues are normal. The mastoid air cells and visualized portions of the paranasal sinuses are well aerated. IMPRESSION: No acute intracranial pathology.
[2017-08-06] MEDS ORDERED: MECLIZINE HCL25 M2 PO (18:36)
--- NOTE | 2017-08-06 18:37 | ED AMS/SEIZURE/WEAK/DIZZY ---
History of Present Illness General Chief Complaint: Dizziness Stated Complaint: LIGHT HEADED, DIZZINESS, FEELS LOOPY ROOM SPINNING Source: patient Exam Limitations: no limitations Vital Signs & Intake/Output Vital Signs & Intake/Output Vital Signs Date Time Temp Pulse Resp B/P B/P Pulse O2 O2 Flow FiO2 Mean Ox Delivery Rate 08/06 1845 97.6 72 16 130/90 97 Room Air 08/06 1704 96.7 74 18 143/74 95 Room Air Allergies Coded Allergies: raspberry (Severe, HIVES 12/13/16) azithromycin (HIVES 12/13/16) Reconcile Medications Ciprofloxacin HCl (Cipro) 500 MG TABLET 1 TAB PO BID prostatitis Cyclobenzaprine HCl 10 MG TABLET 1 TAB PO TID PRN SPASM DO NOT DRIVE WITH THIS MEDICATION Dicyclomine Hydrochloride (Bentyl) 10 MG CAPSULE 1 CAP PO TID PRN abdominal pain Levothyroxine Sodium 175 MCG TABLET 1 TAB PO DAILY AC THYROID (Reported) Meclizine HCl 25 MG TAB.CHEW 1 TAB PO Q8P PRN VERTIGO Meloxicam (Mobic) 15 MG TABLET 1 TAB PO DAILY PRN PAIN Omeprazole 40 MG CAPSULE.DR 1 CAP PO DAILY gerd Rosuvastatin Calcium (Crestor) 20 MG TABLET 1 TAB PO DAILY CHOLESTEROL ( Reported) Sumatriptan Succinate 100 MG TABLET 1 TAB PO AD PRN MIGRAINES (Reported) may repeat in 2 hours; do not exceed 200 mg in 24 hours Tamsulosin HCl (Flomax) 0.4 MG CAP.ER.24H 1 CAP PO DAILY problems urinating Tramadol HCl 50 MG TABLET 1-2 TAB PO Q6 PRN pain Triage Note: 42 YO MALE TO TRIAGE C/O FEELING LIGHTDEADED AND DIZZY SINCE THIS AFTERNOON. DENIES ANY PAIN. DENIES NVD. STATES HE HAS BEEN EATING AND DRINKING NORMALLY. Triage Nurses Notes Reviewed? yes HPI: 42M no PMH presenting with a few hours of a sensation of vertigo with the room spinning to the right whenever he quickly moves his head or when he's walking quickly. Had similar symptoms about a year ago but resolved after a few hours. Symptoms started gradually and are intermittently, only occurring when he does the aforementioned movements and a few times an hour. He denies vision changes, loss of balance, loss of coordination, nausea, vomiting, ear pain, eye pain, headache, chest pain, SOB, palpitations. He has no recent history of URI or infection. No trauma. He is currently asymptomatic. Past History Travel History Traveled to [place] past 21 day No Medical History Any Pertinent Medical History? see below for history Neurological: NONE EENT: NONE Cardiovascular: hyperlipidemia Respiratory: NONE Gastrointestinal: NONE Hepatic: NONE Renal: NONE Musculoskeletal: chronic back pain, spinal stenosis Psychiatric: NONE Endocrine: hypothyroidism Blood Disorders: NONE Cancer(s): NONE COMMERCIAL SUBCONTRACTOR/Reproductive: NONE Tetanus Vaccine: 09/29/15 Surgical History Surgical History: PARTIAL THYROIDECTOMY Psychosocial History What is your primary language Faroese Tobacco Use: Never used Family History Family History, If Any: BROTHER Intracranial mass FATHER FHx: pancreatic cancer Hx Contributory? No Review of Systems Review of Systems Constitutional: Reports: no symptoms. EENTM: Reports: no symptoms. Respiratory: Reports: no symptoms. Cardiovascular: Reports: no symptoms. GI: Reports: no symptoms. Genitourinary: Reports: no symptoms. Musculoskeletal: Reports: no symptoms. Skin: Reports: no symptoms. Neurological/Psychological: Reports: no symptoms. Hematologic/Endocrine: Reports: no symptoms. Immunologic/Allergic: Reports: no symptoms. All Other Systems: Reviewed and Negative Physical Exam Physical Exam General Appearance: well developed/nourished, no apparent distress Head: atraumatic, normal appearance Eyes: Bilateral: normal appearance, PERRL, EOMI. Ears, Nose, Throat: normal pharynx, hearing grossly normal Neck: normal inspection, supple, full range of motion Respiratory: normal breath sounds, no respiratory distress Cardiovascular: regular rate/rhythm Gastrointestinal: soft, non-tender Back: normal inspection, normal range of motion Extremities: normal range of motion Neurologic/Psych: no motor/sensory deficits, awake, alert, normal gait, finishing inspector II- XII nml as tested Skin: intact, normal color, warm/dry Core Measures ACS in differential dx? No CVA/TIA Diagnosis No Sepsis Present: No Sepsis Focused Exam Completed? No Progress Differential Diagnosis: alcohol intoxication, benign positional vertigo, CVA/ stroke, drug intoxication, intracranial mass/tumor, Meniere's disease, migraine GAXIOLA, vertebrobasilar insuff Plan of Care: Orders Procedure Date/time Status URINE DRUG SCREEN FOR ER ONLY 08/06 172 Complete URINALYSIS 08/06 172 Complete TROPONIN LEVEL 08/06 170 Complete COMPREHENSIVE METABOLIC PANEL 08/06 170 Complete CBC WITHOUT DIFFERENTIAL 08/06 1706 Complete EKG 08/06 1706 Active Laboratory Tests 08/06/17 1743: Urine Opiates Screen < 100, Methadone Screen < 40, Barbiturate Screen < 60, Ur Phencyclidine Scrn < 6.00, Amphetamines Screen < 100, U Benzodiazepines Scrn < 85, Urine Cocaine Screen < 50, Urine Cannabis Screen < 5.00, Urine Color , Urine Clarity CLEAR, Urine pH 7.0, Ur Specific [place] <= 1.005, Urine Protein NEG, Urine Ketones NEG, Urine Nitrite NEG, Urine Bilirubin NEG, Urine Urobilinogen 0.2, Ur Leukocyte Esterase NEG, Ur Microscopic EXAM NOT REQUIRED, Urine Hemoglobin NEG, Urine Glucose NEG 08/06/17 171: Anion Gap 11, Estimated GFR > 60, BUN/Creatinine Ratio 11.0, Glucose 95, Calcium 9.7, Total Bilirubin 0.5, AST 81 H, ALT 77 H, Alkaline Phosphatase 63, Troponin I < 0.01, Total Protein 7.4, Albumin 4.6, Globulin 2.8, Albumin/ Globulin Ratio 1.6, CBC w Diff NO MAN DIFF REQ, RBC 5.33, MCV 91.1, MCH 30.9, MCHC 33.9, RDW 13.0, MPV 8.3, Gran % 61.6, Lymphocytes % 28.2, Monocytes % 7.9, Eosinophils % 2.1, Basophils % 0.2, Absolute Granulocytes 4.4, Absolute Lymphocytes 2.0, Absolute Monocytes 0.6, Absolute Eosinophils 0.2, Absolute Basophils 0 Asymptomatic, normal neurological exam without evidence of mass or ischemia. Likely BPPV. Will discharge and patient will follow up with ENT, Meclizine PRN, advised him to ask his PCP for a vestibular therapy referral. Initial ED EKG: none Departure Departure Disposition: HOME OR SELF CARE Condition: Stable Clinical Impression Primary Impression: BPPV (benign paroxysmal positional vertigo) Qualifiers: Laterality: bilateral Qualified Code: H81.13 - Benign paroxysmal vertigo, bilateral Referrals: Artur Solorzano MD (PCP/Family) Additional Instructions: Follow up with ENT. Drink plenty of water. You can take Meclizine to relieve symptoms but it may make you sleepy so try not to drive on it. If you have any new or worsening symptoms return to ER. Departure Forms: Customer Survey General Discharge Information Prescriptions: Current Visit Scripts Meclizine HCl 1 TAB PO Q8P PRN VERTIGO #30 TAB
[2017-08-06 18:45] VITALS: BP 130/90
== END 2017-08-06 18:47 ==
LOC: ERH 16:56
PROVIDERS: Physician Assistant Medical
DX: H81.10 Benign paroxysmal vertigo, unspecified ear (principal); E03.9 Hypothyroidism, unspecified
CPT/HCPCS: 80307; 81003; 93005; 93010